=== PATIENT | male | born 1960 | race African-American/Black ===

== ENCOUNTER 2019-10-18 13:00 | Inpatient (IN) | payer OTHER ==
--- NOTE | 2019-10-18 14:16 | BHS.RME ---
Substance Use & Tx History - Substance Use History Alcohol Substance amount: 2 pints Vodka, 2 quarts beer Frequency of use: Daily Substance route: Oral Date of Last Use: 10/17/19 Marijuana/Hashish Substance amount: $20 Frequency of use: Less than 3 times per week Substance route: Smoking Date of Last Use: 09/18/19 Physical/Psych/Mental Status - Behavior General Behavior: Increased activity (restlessness, agitation) Eye Contact: Normal - Cooperativeness Cooperativeness: Cooperative - Thinking Thought Processes: Tight Thought content: Future oriented - Physical Health Problems Is patient presently having any pain?: Yes (chronic knee pain) Does patient presently have any injuries (include location): No Does patient currently have a fever: No CIWA Nausea/Vomitin-No Nausea/No Vomiting Muscle Tremors: 3 Anxiety: 3 Agitation: 1-Slight > Activity Paroxysmal Sweats: No Perspiration Orientation: 1-Uncertain about Date Tacttile Disturbances: 0-None Auditory Disturbances: 0-None Visual Disturbances: 0-None Headache: 0-None Present CIWA-Ar Total Score: 8
--- NOTE | 2019-10-18 16:47 | HP ---
CIWA Score Nausea/Vomitin Muscle Tremors: 3 Anxiety: 3 Agitation: 2 Paroxysmal Sweats: 2 Orientation: 2-Disoriented Date<2 days Tacttile Disturbances: 0-None Auditory Disturbances: 0-None Visual Disturbances: 0-None Headache: 2-Mild CIWA-Ar Total Score: 16 - Admission Criteria OASAS Guidelines: Admission for Medically Managed Detox: Requires at least one of the followin. CIWA greater than 12 2. Seizures within the past 24 hours 3. Delirium tremens within the past 24 hours 4. Hallucinations within the past 24 hours 5. Acute intervention needed for co occurring medical disorder 6. Acute intervention needed for co occurring psychiatric disorder 7. Severe withdrawal that cannot be handled at a lower level of care (continued vomiting, continued diarrhea, abnormal vital signs) requiring intravenous medication and/or fluids 8. Admitting History and Physical - Smoking History Smoking history: Current every day smoker Have you smoked in the past 12 months: Yes Aproximately how many cigarettes per day: 20 - Alcohol/Substance Use Hx Alcohol Use: Yes (BEER 3 QTS/D) Admission [facility] Chief Complaint: Seeking admission to detox from alcohol Allergies/Adverse Reactions: Allergies Allergy/AdvReac Type Severity Reaction Status Date / Time No Known Allergies Allergy Verified 10/18/19 17:19 History of Present Illness: 58 years old male with a long history of alcohol dependence is seeking admission to detox. His last detox was at [facility] and his last admission to [facility] was for the period 08/07/2012-08/11/2012 and he reports insignificant period of sobriety. He drinks 2 pints of Vodka and 2 quarts of budweiser daily. He reports medical history of bilateral knees arthritis, psych. history of bipolar disorder, anxiety and depression. He denies suicidal ideation at this time. He is unemployed on [employer], lives in a studio apartment and denies any legal issues. 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 Exam Limitations: No Limitations - Ebola screening Have you traveled outside of the country in the last 21 days: No Have you had contact with anyone from an Ebola affected area: No Have you been sick,other than usual withdrawal symptoms: No Do you have a fever: No - Review of Systems Constitutional: Chills, Malaise, Changes in sleep EENT: reports: No Symptoms Reported Respiratory: reports: No Symptoms reported Cardiac: reports: No Symptoms Reported GI: reports: Nausea, Poor Fluid Intake, Abdominal cramping : reports: No Symptoms Reported Musculoskeletal: reports: Other (bilateral knees pain) Integumentary: reports: Dryness, Flushing Neuro: reports: Tremors Endocrine: reports: No Symptoms Reported Hematology: reports: No Symptoms Reported Psychiatric: reports: Anxious Other Systems: Reviewed and Negative Patient History - Patient Medical History Hx Anemia: No Hx Asthma: No Hx Chronic Obstructive Pulmonary Disease (COPD): No Hx Cancer: No Hx Cardiac Disorders: No Hx Congestive Heart Failure: No Hx Hypertension: No Hx Hypercholesterolemia: No Hx Pacemaker: No HX Cerebrovascular Accident: No Hx Seizures: No Hx Dementia: No Hx Diabetes: No Hx Gastrointestinal Disorders: No Hx Liver Disease: No Hx Genitourinary Disorders: No Hx Sexually Transmitted Disorders: No Hx Renal Disease (ESRD): No Hx Thyroid Disease: No Hx Human Immunodeficiency Virus (HIV): No (NEGATIVE 2018) Hx Hepatitis C: No Hx Depression: Yes Hx Suicide Attempt: No Hx Bipolar Disorder: Yes (ZYPREXA, TRAZADONE) Hx Schizophrenia: No Other Medical History: Bilateral knees arthritis - Patient Surgical History Past Surgical History: Yes Hx Neurologic Surgery: No Hx Cataract Extraction: No Hx Cardiac Surgery: No Hx Lung Surgery: No Hx Abdominal Surgery: No Hx Appendectomy: No Hx Cholecystectomy: No Hx Genitourinary Surgery: No Hx Orthopedic Surgery: Yes (L elbow sx for fx in 2002) Hx Hysterectomy: No Anesthesia Reaction: No - PPD History Previous Implant?: Yes (PPD POSITIVE 2018) Implanted On Prior [facility] Admission?: Yes Date: 08/09/12 Results: 0 mm PPD to be Administered?: No - Reproductive History Patient is a Female of Child Bearing Age (11 -55 yrs old): No (MALE) - Smoking Cessation Smoking history: Current every day smoker Have you smoked in the past 12 months: Yes Aproximately how many cigarettes per day: 20 Hx Chewing Tobacco Use: No Initiated information on smoking cessation: Yes 'Breaking Loose' booklet given: 10/18/19 - Substance & Tx. History Hx Alcohol Use: Yes Hx Substance Use: Yes Substance Use Type: Alcohol, Marijuana Hx Substance Use Treatment: Yes ([facility]) - Substances abused Alcohol Substance route: Oral Frequency: Daily Amount used: 2 pints of Vodka, 2 quarts of budweiser daily Age of first use: 14 Date of last use: 10/18/19 Marijuana/Hashish Substance route: Smoking Frequency: Daily Amount used: 1 bag Age of first use: 14 Date of last use: 10/07/19 Admission Physical Exam [facility] - Physical General Appearance: Yes: Moderate Distress, Tremorous, Anxious HEENTM: Yes: Within Normal Limits Respiratory: Yes: Lungs Clear, Normal Breath Sounds, No Respiratory Distress Neck: Yes: Within Normal Limits Breast: Yes: Breast Exam Deferred Cardiology: Yes: Regular Rhythm, Regular Rate Abdominal: Yes: Normal Bowel Sounds, Soft Genitourinary: Yes: Within Normal Limits Back: Yes: Normal Inspection Musculoskeletal: Yes: Other (Bilateral knee pain) Extremities: Yes: Tremors Neurological: Yes: Within Normal Limits Integumentary: Yes: Warm Lymphatic: Yes: Within Normal Limits Cleared for Admission [facility] - Detox or Rehab [facility] Level of Care: Medically Managed Detox Regimen/Protocol: Librium Claeared for Rehab Admission: No Breathalyzer - Breathalyzer Breathalyzer: 0 Urine Drug Screen - Test Device Lot number: [id number] Expiration date: 07/03/21 - Control Is test valid?: Yes - Results Urine drug screen results: THC-Marijuana, BZO-Benzodiazepines Inpatient Rehab Admission - Rehab Decision to Admit Inpatient rehab admission?: No
[2019-10-18 16:59] VITALS: BMI 23.6
[2019-10-18] MEDS ORDERED: MAGNESIUM HYDROX 2400MG/30ML ORAL SUSPENSION 30 ML CUP PO PRN (17:08)
[2019-10-18] MEDS ORDERED: NICOTINE POLACRILEX 2 MG GUM BUC PRN (17:08)
[2019-10-18] MEDS ORDERED: IBUPROFEN 400 MG TABLET (FP) PO PRN (17:08)
[2019-10-18] MEDS ORDERED: chlordiazePOXIDE HCL 25 MG CAPSULE PO PRN (17:08)
[2019-10-18] MEDS ORDERED: MENTHOL/PHENOL 1 EACH UD MM PRN (17:08)
[2019-10-18] MEDS ORDERED: METHOCARBAMOL 500 MG TABLET PO PRN (17:08)
[2019-10-18] MEDS ORDERED: MAGNESIUM CITRATE 300 ML BOTTLE PO PRN (17:08)
[2019-10-18] MEDS ORDERED: BISMUTH SUBSALICYLATE 524 MG/30 ML UD PO PRN (17:08)
[2019-10-18] MEDS ORDERED: ACETAMINOPHEN 325 MG TABLET (FP) PO PRN ×2 (17:08)
[2019-10-18] MEDS ORDERED: MAG HYDROX/AL HYDROX/SIMETH 30 ML UNIT-DOSE CUP PO PRN (17:08)
[2019-10-18] MEDS ORDERED: ONDANSETRON *ODT* 4 MG TABLET SL ONE (17:45)
[2019-10-18] MEDS: chlordiazePOXIDE HCL 25 MG CAPSULE PO SCH (23:17)
[2019-10-18] MEDS: MELATONIN 5 MG TABLETS PO SCH (23:17)
[2019-10-18] MEDS: THIAMINE HCL 100 MG TABLET (FP) PO SCH (23:17)
[2019-10-19] MEDS: chlordiazePOXIDE HCL 25 MG CAPSULE PO SCH ×4 (06:56→22:45)
[2019-10-19] MEDS: NICOTINE 21 MG/24 HOURS TOPICAL PATCH TD SCH (10:08)
[2019-10-19] MEDS: PRENATAL VITAMINS W/ FOLIC ACID TABLET (FP) PO SCH (10:08)
--- NOTE | 2019-10-19 11:26 | PN ---
S CIWA - CIWA Score Nausea/Vomitin-No Nausea/No Vomiting Muscle Tremors: 2 Anxiety: 3 Agitation: 1-Slight > Activity Paroxysmal Sweats: 3 Orientation: 0-Oriented Tacttile Disturbances: 0-None Auditory Disturbances: 0-None Visual Disturbances: 0-None Headache: 1-Very Mild CIWA-Ar Total Score: 10 BHS Progress Note (SOAP) Subjective: c/o sweats, anxiety, and headache. Objective: 10/19/19 11:25 Vital Signs 10/19/19 10/19/19 05:50 08:43 Temperature 97.3 F L 98.5 F Pulse Rate 70 92 H Respiratory 18 18 Rate Blood Pressure 125/68 126/76 O2 Sat by Pulse 96 Oximetry (%) Labs pending. Assessment: 10/19/19 11:26 AOX3 and in no acute respiratory distress. Full ROM, ambulating in the unit. Withdrawal symptoms. Plan: continue detox.
[2019-10-19 12:02] LABS: HEMATOCRIT 39.4 % (35.4-49); HEMOGLOBIN 13.1 GM/dL (11.7-16.9); MCHC 33.4 g/dl (32.0-35.9); MEAN CELL VOLUME 98.9 fl (80-96); MEAN PLT VOLUME 9.2 fl (7.5-11.1); PLATELET COUNT 239 K/MM3 (134-434); RBC 3.98 M/mm3 (4.00-5.60); RDW 15.1 % (11.9-15.9); WHITE BLOOD COUNT 3.7 K/mm3 (4.0-10.0)
[2019-10-19 12:11] LABS: BLOOD UREA NITROGEN 13.9 mg/dL (7-18); CALCIUM 8.4 mg/dL (8.5-10.1); CREATININE 0.8 mg/dL (0.55-1.3); POTASSIUM 4.4 mmol/L (3.5-5.1)
[2019-10-19 12:13] LABS: BILIRUBIN,TOTAL 0.5 mg/dL (0.2-1)
--- NOTE | 2019-10-19 13:35 | CONSULT ---
[facility] Psychiatric Consult - Data Date of interview: 10/19/19 Admission source: [facility] Identifying data: Readmission to [address] [place] [address] for this 58 y/o AA male self-referred for detoxification treatment. ROBSON issues : alcohol, cannabis, nicotine. Patient is single, no dependents, domiciled ([facility] for past six years), unemployed and supported on SSI/SS[employer] benefits. Substance Abuse History: Discussed with the patient. ROBSON profile as follows : Smoking history: Current every day smoker. Have you smoked in the past 12 months: Yes. Aproximately how many cigarettes per day: 20. Hx Chewing Tobacco Use: No. Initiated information on smoking cessation: Yes. 'Breaking Loose' booklet given: 10/18/19. - Substance & Tx. History. Hx Alcohol Use: Yes. Hx Substance Use: Yes. Substance Use Type: Alcohol, Marijuana. Hx Substance Use Treatment: Yes ([facility], [place]). - Substances abused. Alcohol. Substance route: Oral. Frequency: Daily. Amount used: 2 pints of Vodka, 2 quarts of budweiser daily. Age of first use: 14. Date of last use: 10/18/19. Marijuana/Hashish. Substance route: Smoking. Frequency: Daily. Amount used: 1 bag. Age of first use: 14. Date of last use: 10/07/19 Medical History: Medical history is remarkable for arthritis of both knees + orthosurgery for fracture of left elbow (2002). Psychiatric History: Patient endorses history of multiple psychiatric h [facility]spitalizations (mostly at [facility]). [facility] and [facility] in addition to [facility]. Mr Miller has reportedly been diagnosed with Bipolar Disorder and treated with olanzapine 10 mg/day + trazodone 100 mg/hs (self-report). Patient sees a psychiatrist for [facility] the [facility] (). Denies history of suicide attempts. Physical/Sexual Abuse/Trauma History: Patient denies history of abuse. Mr Mujica has served four years in the [employer] ([id number]). No combat experie nce. Has never been deployed overseas. Honorably discharged (self-report). Additional Comment: Urine drug screen results: THC-Marijuana, BZO- Benzodiazepines. Noted. Mental Status Exam - Mental Status Exam Alert and Oriented to: Time, Place, Person Cognitive Function: Good Patient Appearance: Well Groomed (covered with jewelry, tall staure) Mood: Withdrawn, Hopeful Affect: Appropriate, Normal Range Patient Behavior: Fatigued, Appropriate, Cooperative Speech Pattern: Clear, Appropriate Voice Loudness: Normal Thought Process: Intact, Goal Oriented Thought Disorder: Not Present Hallucinations: Denies Suicidal Ideation: Denies Homicidal Ideation: Denies Insight/Judgement: Poor Sleep: Poorly, Difficulty falling asleep Appetite: Good Gait/Station: Normal Psychiatric Findings - Problem List ([place] 1, 2,3) (1) Alcohol dependence Current Visit: Yes Status: Chronic (2) Cannabis dependence Current Visit: Yes Status: Chronic (3) Nicotine dependence Current Visit: Yes Status: Acute (4) History of bipolar disorder Current Visit: Yes Status: Chronic (5) Insomnia Current Visit: Yes Status: Chronic - Initial Treatment Plan Initial Treatment Plan: Psychoeducation. Sleep hygiene. Detoxification in progress. Resumed, at patient's request for continuity of care : olanzapine 5 mg po daily + trazodone 100 mg po hs. Side effects/benefits of both drugs are discussed with the patient. Mr Mujica is in agreement with this plan of care. [place] consent (verbal) to JASPREET. Observation.
[2019-10-19] MEDS: traZODone HCL 100 MG TABLET (FP) PO SCH (22:45)
[2019-10-19] MEDS: THIAMINE HCL 100 MG TABLET (FP) PO SCH (22:45)
[2019-10-19] MEDS: MELATONIN 5 MG TABLETS PO SCH (22:46)
[2019-10-20] MEDS: chlordiazePOXIDE HCL 25 MG CAPSULE PO SCH ×4 (06:01→22:31)
[2019-10-20] MEDS: PRENATAL VITAMINS W/ FOLIC ACID TABLET (FP) PO SCH (10:37)
[2019-10-20] MEDS: OLANZapine 5 MG TABLET PO SCH (10:37)
[2019-10-20] MEDS: NICOTINE 21 MG/24 HOURS TOPICAL PATCH TD SCH (10:37)
--- NOTE | 2019-10-20 15:05 | PN ---
S CIWA - CIWA Score Nausea/Vomitin-Mild Nausea/No Vomiting Muscle Tremors: 1-None Visible, but [place] Anxiety: 3 Agitation: 1-Slight > Activity Paroxysmal Sweats: No Perspiration Orientation: 0-Oriented Tacttile Disturbances: 1-Very Mild Itch/Numbness Auditory Disturbances: 0-None Visual Disturbances: 1-Very Mild Sensitivity Headache: 1-Very Mild CIWA-Ar Total Score: 9 BHS Progress Note (SOAP) Subjective: 58 YEARS OLD MALE ADMITTED ON 10/18/19 FOR ALCOHOL WITHDRAWAL SX MANAGEMENT TREATING WITH LIBRIUM DETOX REGIMENT TROUBLE SLEEP LAST NIGHT FEELING TIRED PREFERS TO RESTING TODAY Objective: 10/20/19 15:04 Vital Signs - 24 hr 10/19/19 10/19/19 10/20/19 16:45 20:57 07:18 Temperature 97.3 F L 97.3 F L 97.3 F L Pulse Rate 82 88 81 Respiratory 18 19 19 Rate Blood Pressure 106/67 118/85 119/85 O2 Sat by Pulse 100 100 Oximetry (%) 10/20/19 10/20/19 08:52 12:43 Temperature 97.6 F 98.6 F Pulse Rate 92 H 91 H Respiratory 18 18 Rate Blood Pressure 115/78 133/87 O2 Sat by Pulse 98 Oximetry (%) Laboratory Tests 10/18/19 10/19/19 10/19/19 18:15 07:50 07:50 WBC 3.7 L RBC 3.98 L Hgb 13.1 Hct 39.4 D MCV 98.9 H MCH 33.0 MCHC 33.4 RDW 15.1 Plt Count 239 D MPV 9.2 Sodium Potassium Chloride Carbon Dioxide Anion Gap BUN Creatinine Est GFR (CKD-EPI)AfAm Est GFR (CKD-EPI)NonAf Random Glucose Calcium Total Bilirubin AST ALT Alkaline Phosphatase Total Protein Albumin Syphilis Serology Non-reactive COVID-19 (JOANNA) Not detected 10/19/19 07:50 WBC RBC Hgb Hct MCV MCH MCHC RDW Plt Count MPV Sodium 143 Potassium 4.4 Chloride 110 H Carbon Dioxide 26 Anion Gap 7 L BUN 13.9 Creatinine 0.8 Est GFR (CKD-EPI)AfAm 113.33 Est GFR (CKD-EPI)NonAf 97.78 Random Glucose 90 Calcium 8.4 L Total Bilirubin 0.5 AST 19 ALT 20 Alkaline Phosphatase 86 Total Protein 6.0 L Albumin 3.0 L Syphilis Serology COVID-19 (JOANNA) LAB NOTED Assessment: 10/20/19 15:05 ALCOHOL WITHDRAWAL Plan: LIBRIUM REGIMENT
--- NOTE | 2019-10-20 18:59 | EKG ---
Test Reason : Blood Pressure : / mmHG Vent. Rate : 069 BPM Atrial Rate : 069 BPM P-R Int : 178 ms QRS Dur : 094 ms QT Int : 424 ms P-R-T Axes : 069 -07 063 degrees QTc Int : 454 ms NORMAL SINUS RHYTHM LEFT ATRIAL ENLARGEMENT BORDERLINE ECG NO PREVIOUS ECGS AVAILABLE Confirmed by MD KEENA, ADARSH ([id number]) on 10/20/2019 6:58:40 PM Referred By: Confirmed By:ADARSH BRINK MD
[2019-10-20] MEDS: MELATONIN 5 MG TABLETS PO SCH (22:31)
[2019-10-20] MEDS: THIAMINE HCL 100 MG TABLET (FP) PO SCH (22:31)
[2019-10-20] MEDS: traZODone HCL 100 MG TABLET (FP) PO SCH (22:31)
[2019-10-21] MEDS ORDERED: chlordiazePOXIDE HCL 10 MG CAPSULE PO PRN
[2019-10-21] MEDS: chlordiazePOXIDE HCL 10 MG CAPSULE PO SCH ×4 (06:43→22:22)
[2019-10-21] MEDS: NICOTINE 21 MG/24 HOURS TOPICAL PATCH TD SCH (10:45)
[2019-10-21] MEDS: PRENATAL VITAMINS W/ FOLIC ACID TABLET (FP) PO SCH (10:46)
[2019-10-21] MEDS: OLANZapine 5 MG TABLET PO SCH (10:46)
--- NOTE | 2019-10-21 11:22 | PN ---
S CIWA - CIWA Score Nausea/Vomitin-No Nausea/No Vomiting Muscle Tremors: 2 Anxiety: 3 Agitation: 0-Normal Activity Paroxysmal Sweats: No Perspiration Orientation: 0-Oriented Tacttile Disturbances: 0-None Auditory Disturbances: 0-None Visual Disturbances: 2-Mild Sensitivity Headache: 0-None Present CIWA-Ar Total Score: 7 S Progress Note (SOAP) Subjective: 58 years old male was admitted on 10/18/19 for alcohol withdrawal sx management treating with librium detox regiment reports that librium helps the tremor and anxiety able to sleep through the night seen by psychiatrist martina zyprexa and trazodone Objective: 10/21/19 11:22 Vital Signs - 24 hr 10/20/19 10/20/19 10/20/19 12:43 17:11 20:54 Temperature 98.6 F 97.1 F L 97.5 F L Pulse Rate 91 H 105 H 92 H Respiratory 18 19 18 Rate Blood Pressure 133/87 113/79 129/84 O2 Sat by Pulse 98 99 Oximetry (%) 10/21/19 10/21/19 06:49 08:31 Temperature 97.3 F L 98.1 F Pulse Rate 78 83 Respiratory 18 18 Rate Blood Pressure 106/70 106/75 O2 Sat by Pulse 97 Oximetry (%) Laboratory Tests 10/18/19 10/19/19 10/19/19 18:15 07:50 07:50 WBC 3.7 L RBC 3.98 L Hgb 13.1 Hct 39.4 D MCV 98.9 H MCH 33.0 MCHC 33.4 RDW 15.1 Plt Count 239 D MPV 9.2 Sodium Potassium Chloride Carbon Dioxide Anion Gap BUN Creatinine Est GFR (CKD-EPI)AfAm Est GFR (CKD-EPI)NonAf Random Glucose Calcium Total Bilirubin AST ALT Alkaline Phosphatase Total Protein Albumin Syphilis Serology Non-reactive COVID-19 (JOANNA) Not detected 10/19/19 07:50 WBC RBC Hgb Hct MCV MCH MCHC RDW Plt Count MPV Sodium 143 Potassium 4.4 Chloride 110 H Carbon Dioxide 26 Anion Gap 7 L BUN 13.9 Creatinine 0.8 Est GFR (CKD-EPI)AfAm 113.33 Est GFR (CKD-EPI)NonAf 97.78 Random Glucose 90 Calcium 8.4 L Total Bilirubin 0.5 AST 19 ALT 20 Alkaline Phosphatase 86 Total Protein 6.0 L Albumin 3.0 L Syphilis Serology COVID-19 (JOANNA) lab noted Assessment: 10/21/19 11:22 alcohol withdrawal Plan: librium regiment
[2019-10-21] MEDS: traZODone HCL 100 MG TABLET (FP) PO SCH (22:22)
[2019-10-21] MEDS: THIAMINE HCL 100 MG TABLET (FP) PO SCH (22:22)
[2019-10-21] MEDS: MELATONIN 5 MG TABLETS PO SCH (22:23)
[2019-10-22] MEDS: chlordiazePOXIDE HCL 10 MG CAPSULE PO SCH ×2 (06:02→17:45)
[2019-10-22] MEDS: PRENATAL VITAMINS W/ FOLIC ACID TABLET (FP) PO SCH (10:28)
[2019-10-22] MEDS: NICOTINE 21 MG/24 HOURS TOPICAL PATCH TD SCH (10:28)
[2019-10-22] MEDS: OLANZapine 5 MG TABLET PO SCH (10:28)
--- NOTE | 2019-10-22 15:03 | PN ---
S CIWA - CIWA Score Nausea/Vomitin-Mild Nausea/No Vomiting Muscle Tremors: 1-None Visible, but [place] Anxiety: 1-Mildly Anxious Agitation: 0-Normal Activity Paroxysmal Sweats: No Perspiration Orientation: 0-Oriented Tacttile Disturbances: 0-None Auditory Disturbances: 0-None Visual Disturbances: 1-Very Mild Sensitivity Headache: 0-None Present CIWA-Ar Total Score: 4 BHS Progress Note (SOAP) Subjective: 58 years old male was admitted on 10/18/19 for alcohol withdrawal sx management treating with librium detox regiment feels better today sitting on the edge of the bed ate breakfast and lunch tolerated food well discussing aftercare with staff mr doyle prefers [facility] for alcohol recovery Objective: 10/22/19 15:05 Vital Signs - 24 hr 10/21/19 10/21/19 10/22/19 17:07 20:25 06:19 Temperature 98.1 F 98.6 F 97.6 F Pulse Rate 98 H 87 66 Respiratory 16 18 18 Rate Blood Pressure 96/67 131/78 109/69 O2 Sat by Pulse 100 99 Oximetry (%) 10/22/19 10/22/19 10/22/19 08:27 08:54 09:47 Temperature 98.1 F 96.8 F L Pulse Rate 84 78 Respiratory 16 20 Rate Blood Pressure 133/93 117/81 O2 Sat by Pulse 99 99 Oximetry (%) 10/22/19 13:29 Temperature 96.8 F L Pulse Rate 97 H Respiratory 20 Rate Blood Pressure 108/76 O2 Sat by Pulse 100 Oximetry (%) Laboratory Tests 10/18/19 10/19/19 10/19/19 18:15 07:50 07:50 WBC 3.7 L RBC 3.98 L Hgb 13.1 Hct 39.4 D MCV 98.9 H MCH 33.0 MCHC 33.4 RDW 15.1 Plt Count 239 D MPV 9.2 Sodium Potassium Chloride Carbon Dioxide Anion Gap BUN Creatinine Est GFR (CKD-EPI)AfAm Est GFR (CKD-EPI)NonAf Random Glucose Calcium Total Bilirubin AST ALT Alkaline Phosphatase Total Protein Albumin Syphilis Serology Non-reactive COVID-19 (JOANNA) Not detected 10/19/19 07:50 WBC RBC Hgb Hct MCV MCH MCHC RDW Plt Count MPV Sodium 143 Potassium 4.4 Chloride 110 H Carbon Dioxide 26 Anion Gap 7 L BUN 13.9 Creatinine 0.8 Est GFR (CKD-EPI)AfAm 113.33 Est GFR (CKD-EPI)NonAf 97.78 Random Glucose 90 Calcium 8.4 L Total Bilirubin 0.5 AST 19 ALT 20 Alkaline Phosphatase 86 Total Protein 6.0 L Albumin 3.0 L Syphilis Serology COVID-19 (JOANNA) lab noted Assessment: 10/22/19 15:05 alcohol withdrawal Plan: librium regiment
[2019-10-22] MEDS: hydrOXYzine PAMOATE 25 MG CAPSULE (FP) PO PRN ×2 (17:45→22:50)
[2019-10-22] MEDS: MELATONIN 5 MG TABLETS PO SCH (22:50)
[2019-10-22] MEDS: THIAMINE HCL 100 MG TABLET (FP) PO SCH (22:50)
[2019-10-22] MEDS: traZODone HCL 100 MG TABLET (FP) PO SCH (22:50)
[2019-10-22 23:16] VITALS: TEMP 97.3
[2019-10-23] MEDS ORDERED: chlordiazePOXIDE HCL 10 MG CAPSULE PO ONE (05:00)
[2019-10-23 06:50] VITALS: BP 104/63; PULSE 71
[2019-10-23] MEDS: OLANZapine 5 MG TABLET PO SCH (09:20)
[2019-10-23] MEDS: PRENATAL VITAMINS W/ FOLIC ACID TABLET (FP) PO SCH (09:20)
[2019-10-23] MEDS: NICOTINE 21 MG/24 HOURS TOPICAL PATCH TD SCH (09:21)
--- NOTE | 2019-10-23 09:40 | DS ---
[facility] Detox Discharge Summary Admission Date: 10/18/19 Discharge Date: 10/23/19 - History Present History: Alcohol Dependence Additional Comments: 58 years old male was admitted on 10/18/19 for alcohol withdrawal sx management treated with librium detox regiment seen by psychiatrist martina renner mr doyle has completed the librium regiment and is tolerated well General Appearance: Yes: Moderate Distress, Tremorous, Anxious HEENTM: Yes: Within Normal Limits Respiratory: Yes: Lungs Clear, Normal Breath Sounds, No Respiratory Distress Neck: Yes: Within Normal Limits Breast: Yes: Breast Exam Deferred Cardiology: Yes: Regular Rhythm, Regular Rate Abdominal: Yes: Normal Bowel Sounds, Soft Genitourinary: Yes: Within Normal Limits Back: Yes: Normal Inspection Musculoskeletal: Yes: Other (Bilateral knee pain) Extremities: Yes: Tremors Neurological: Yes: Within Normal Limits Integumentary: Yes: Warm Lymphatic: Yes: Within Normal Limits Pertinent Past History: time for discharge 45 minutes transferred order set from detox to rehab - Physical Exam Results Vital Signs: Vital Signs Temperature 97.3 F L 10/23/19 05:45 Pulse Rate 71 10/23/19 05:45 Respiratory Rate 18 10/23/19 05:45 Blood Pressure 104/63 10/23/19 05:45 O2 Sat by Pulse Oximetry (%) 95 10/22/19 21:00 Pertinent Admission Physical Exam Findings: alcohol withdrawal Vital Signs - 24 hr 10/22/19 10/22/19 10/23/19 16:56 21:00 05:45 Temperature 96.9 F L 97.3 F L 97.3 F L Pulse Rate 83 103 H 71 Respiratory 18 18 18 Rate Blood Pressure 131/83 137/80 104/63 O2 Sat by Pulse 100 95 Oximetry (%) Laboratory Tests 10/18/19 10/19/19 10/19/19 18:15 07:50 07:50 WBC 3.7 L RBC 3.98 L Hgb 13.1 Hct 39.4 D MCV 98.9 H MCH 33.0 MCHC 33.4 RDW 15.1 Plt Count 239 D MPV 9.2 Sodium Potassium Chloride Carbon Dioxide Anion Gap BUN Creatinine Est GFR (CKD-EPI)AfAm Est GFR (CKD-EPI)NonAf Random Glucose Calcium Total Bilirubin AST ALT Alkaline Phosphatase Total Protein Albumin Syphilis Serology Non-reactive COVID-19 (JOANNA) Not detected 10/19/19 07:50 WBC RBC Hgb Hct MCV MCH MCHC RDW Plt Count MPV Sodium 143 Potassium 4.4 Chloride 110 H Carbon Dioxide 26 Anion Gap 7 L BUN 13.9 Creatinine 0.8 Est GFR (CKD-EPI)AfAm 113.33 Est GFR (CKD-EPI)NonAf 97.78 Random Glucose 90 Calcium 8.4 L Total Bilirubin 0.5 AST 19 ALT 20 Alkaline Phosphatase 86 Total Protein 6.0 L Albumin 3.0 L Syphilis Serology COVID-19 (JOANNA) lab noted - Treatment Hospital Course: Detox Protocol Followed, Detoxed Safely, Responded well, Discharged Condition Good, Rehab Referral Accepted Patient has Accepted a Rehab Referral to: [facility] - Medication Discharge Medications: Ambulatory Orders Olanzapine [ZyPREXA -] 10 mg PO BID #0 tablet 05/30/11 traZODone HCL [Desyrel -] 100 mg PO HS 08/07/12 - Diagnosis (1) Schizoaffective disorder Status: Suspected Qualifiers: Schizoaffective disorder type: unspecified Qualified Code(s): F25.9 - Schizoaffective disorder, unspecified (2) Nicotine dependence Status: Acute Qualifiers: Nicotine product type: cigarettes Substance use status: in withdrawal Qualified Code(s): F17.213 - Nicotine dependence, cigarettes, with withdrawal (3) Alcohol dependence Status: Acute - AMA Did Patient Leave Against Medical Advice: No CIWA Score - CIWA Score Nausea/Vomitin-Mild Nausea/No Vomiting Muscle Tremors: 1-None Visible, but [place] Anxiety: 0-No Anxiety, at Ease Agitation: 0-Normal Activity Paroxysmal Sweats: No Perspiration Orientation: 0-Oriented Tacttile Disturbances: 0-None Auditory Disturbances: 0-None Visual Disturbances: 0-None Headache: 0-None Present CIWA-Ar Total Score: 2
== END 2019-10-23 12:49 | disposition other institution (70) | DRG 897 ==
LOC: YASAS 13:00 → Y3N 17:28
PROVIDERS: ADMIT Allergy & Immunology; ATTEND Allergy & Immunology
PROC: HZ2ZZZZ Detoxification Services for Substance Abuse Treatment (ICD-10-PCS; principal; 2019-10-18)
DX: F10.230 Alcohol dependence with withdrawal, uncomplicated (principal); F12.20 Cannabis dependence, uncomplicated; F17.210 Nicotine dependence, cigarettes, uncomplicated; F25.9 Schizoaffective disorder, unspecified; F31.9 Bipolar disorder, unspecified; G47.00 Insomnia, unspecified; M17.0 Bilateral primary osteoarthritis of knee; M25.561 Pain in right knee; M25.562 Pain in left knee
CPT/HCPCS: 36415; 71045-TC-FY; 80053; 85027; 86780; 93005; 93010; U0003

== ENCOUNTER 2019-10-23 13:11 | Inpatient (IN) | payer OTHER ==
--- NOTE | 2019-10-23 09:43 | HP ---
[facility] Rehab Assess/Revision - Admission History Admitted to Rehab from: [facility] Date of Admission to Rehab: 10/23/19 - Findings Detox History & Physical reviewed: Yes Concur with findings: Yes Comments/Additional Findings: transferred from detox to rehab admission as per protocol Inpatient Rehab Admission - Rehab Decision to Admit Inpatient rehab admission?: Yes - Initial Determination Are CD services needed?: Yes Free of communicable disease: Yes Not in need of hospitalization: Yes - Rehab Admission Criteria Previous failed treatment: Yes Poor recovery environment: Yes Comorbidities: Yes Lacks judgement: Yes Patient is meeting Inpatient Rehab admission criteria:: Yes
[2019-10-23] MEDS ORDERED: guaiFENesin 200 MG/10 ML 10 ML UNIT-DOSE CUPS PO PRN (13:43)
[2019-10-23] MEDS ORDERED: LOPERAMIDE HCL 2 MG CAPSULE PO PRN (13:43)
[2019-10-23] MEDS ORDERED: MAGNESIUM CITRATE 300 ML BOTTLE PO PRN (13:43)
[2019-10-23] MEDS ORDERED: MAG HYDROX/AL HYDROX/SIMETH 30 ML UNIT-DOSE CUP PO PRN (13:43)
[2019-10-23] MEDS ORDERED: NICOTINE POLACRILEX 4 MG GUM BC PRN (13:43)
[2019-10-23] MEDS ORDERED: ACETAMINOPHEN 325 MG TABLET (FP) PO PRN (13:43)
[2019-10-23] MEDS ORDERED: MAGNESIUM HYDROX 2400MG/30ML ORAL SUSPENSION 30 ML CUP PO PRN (13:43)
[2019-10-23] MEDS ORDERED: P-EPHED 60MG/TRIPROLIDI 2.5MG TABLET PO PRN (13:43)
--- NOTE | 2019-10-23 14:52 | CONSULT ---
[facility] Psychiatric Consult - Data Date of interview: 10/23/19 Admission source: 3N Identifying data: Mr Mujica is a 58 years old single Black makle, unemployed receiving SSi/SSD, domiciled admitted from detox on 10/23/19 for inpatient rehabilitation treatment for alcohol and cannabis Substance Abuse History: Reports history of alcohol and marijuana use. Refer to addiction counselor's summary for further information Medical History: Significant for arthritis of both knees and orthosurgery for fracture of left elbow in 2002. Smokes cigarettes 1 ppd Psychiatric History: Patient is known for previous admissions to this facility. He was just referred from detox where he saw Dr Adams. Hr reports being diagnosed with Bipolar Disorder with multiple previous hospitalizations at various institutions but mostly in the [place]([facility], [facility]). He is also known to [facility] and [facility]. Reports that he currently receives OPD care at [facility] on and he is prescribed Zyprexa 10 mg/day and Trazadone 100 mg/hs. When he saw Dr Adams recently in detox, he was prescribed Zyprexa 5 mg/day and Trazadone 100 mg/hs. Denies previous suicidal attempt. At present, denies experiencing psychotic, manic or depressive symptoms, S/H ideations. However, reports sleeping poorly Physical/Sexual Abuse/Trauma History: Patient denies history of abuse. Mr Mujica has served four years in the [employer] ([id number]). No combat experience. Has never been deployed overseas. Honorably discharged (self- report). Psychiatric Findings - Problem List ([place] 1, 2,3) (1) Bipolar disorder Current Visit: Yes Status: Chronic (2) Insomnia Current Visit: No Status: Ruled-out (3) Substance-induced sleep disorder Current Visit: Yes Status: Acute (4) Alcohol dependence Current Visit: Yes Status: Acute (5) Cannabis dependence Current Visit: Yes Status: Acute (6) Nicotine dependence Current Visit: Yes Status: Chronic (7) Arthritis of both knees Current Visit: Yes Status: Chronic - Initial Treatment Plan Initial Treatment Plan: 1) Continue Trazadone 100 mg po HS. 2) Resume Zyprexa 10 mg po daily. 3) Continueinpatient rehabiloitation
--- NOTE | 2019-10-23 15:03 | PN ---
[facility] Progress Note Note: Pt is a 58 y/o male admitted to rehab from [facility] [address] [place] today. PMHx:Arthritis- Bilateral knees. Psx: Left elbow sx due to sx-2002. Psych Hx of Bipolar disorder-on meds. Vital Signs - 24 hr 10/23/19 13:42 Temperature 97.7 F Pulse Rate 97 H Respiratory 18 Rate O2 Sat by Pulse 97 Oximetry (%) alert o x 3 nad oob ambulating with unsteady gait. extremities:no edema,skin intact New rehab pt admitted to rehab increase po fluids maintain safety cane ordered for ambulation
[2019-10-23] MEDS: IBUPROFEN 400 MG TABLET (FP) PO PRN (19:28)
[2019-10-23] MEDS: THIAMINE HCL 100 MG TABLET (FP) PO SCH (21:16)
[2019-10-23] MEDS: MELATONIN 5 MG TABLETS PO SCH (21:16)
[2019-10-23] MEDS: traZODone HCL 100 MG TABLET (FP) PO SCH (21:17)
[2019-10-23] MEDS ORDERED: OLANZapine 5 MG TABLET PO SCH (22:00)
[2019-10-24] MEDS: OLANZapine 10 MG TABLET PO SCH (10:15)
[2019-10-24] MEDS: IBUPROFEN 400 MG TABLET (FP) PO PRN (10:15)
[2019-10-24] MEDS: PRENATAL VITAMINS W/ FOLIC ACID TABLET (FP) PO SCH (10:15)
[2019-10-24] MEDS: NICOTINE 21 MG/24 HOURS TOPICAL PATCH TD SCH (10:16)
[2019-10-24] MEDS: LIDOCAINE 5% TOPICAL PATCH TP SCH (10:16)
[2019-10-24] MEDS: MELATONIN 5 MG TABLETS PO SCH (21:10)
[2019-10-24] MEDS: traZODone HCL 100 MG TABLET (FP) PO SCH (21:10)
[2019-10-24] MEDS: THIAMINE HCL 100 MG TABLET (FP) PO SCH (21:10)
[2019-10-24] MEDS: LIDOCAINE PATCH REMOVAL MC SCH (21:10)
[2019-10-25] MEDS: LIDOCAINE 5% TOPICAL PATCH TP SCH (10:20)
[2019-10-25] MEDS: PRENATAL VITAMINS W/ FOLIC ACID TABLET (FP) PO SCH (10:21)
[2019-10-25] MEDS: OLANZapine 10 MG TABLET PO SCH (10:21)
[2019-10-25] MEDS: NICOTINE 21 MG/24 HOURS TOPICAL PATCH TD SCH (10:21)
[2019-10-25] MEDS: traZODone HCL 100 MG TABLET (FP) PO SCH (22:03)
[2019-10-25] MEDS: THIAMINE HCL 100 MG TABLET (FP) PO SCH (22:03)
[2019-10-25] MEDS: MELATONIN 5 MG TABLETS PO SCH (22:04)
[2019-10-25] MEDS: LIDOCAINE PATCH REMOVAL MC SCH (22:04)
[2019-10-26] MEDS: PRENATAL VITAMINS W/ FOLIC ACID TABLET (FP) PO SCH (09:37)
[2019-10-26] MEDS: LIDOCAINE 5% TOPICAL PATCH TP SCH (09:37)
[2019-10-26] MEDS: OLANZapine 10 MG TABLET PO SCH (09:38)
[2019-10-26] MEDS: NICOTINE 21 MG/24 HOURS TOPICAL PATCH TD SCH (09:38)
[2019-10-26] MEDS: traZODone HCL 100 MG TABLET (FP) PO SCH (21:09)
[2019-10-26] MEDS: THIAMINE HCL 100 MG TABLET (FP) PO SCH (21:09)
[2019-10-26] MEDS: MELATONIN 5 MG TABLETS PO SCH (21:10)
[2019-10-26] MEDS: LIDOCAINE PATCH REMOVAL MC SCH (21:10)
--- NOTE | 2019-10-27 03:42 | PN ---
[facility] Progress Note Note: SEEN FOR FALL. CLIENT REPORTS MISSING THE BED WHEN HE ATTEMPTED TO SIT. HE REPORTS FALLING BACKWARDS STRIKING THE BACK OF HIS HEAD ON THE FLOOR. DENIES DIZZINESS, HEADACHE, VISUAL DISTURBANCE, SOB, C.P, WEAKNESS. Vital Signs Temperature 97.7 F 10/27/19 03:35 Pulse Rate 90 10/27/19 03:35 Respiratory Rate 18 10/27/19 03:35 Blood Pressure 123/80 10/27/19 03:35 O2 Sat by Pulse Oximetry (%) 96 10/27/19 03:35 SEEN SEATED IN ERECT POSITION AT BEDSIDE A/O X3 , IRRITABLE HEAD- 5CM X LINEAR LACERATION TO OCCIPITAL PUPILS-PERRLA, EOMI EXTREMITIES- AMBULATING W/O DIFFICULTY BACK- NL INSPECTION A- ADMITTED FOR ALCOHOL DETOX ON 10/18/19. COMPLETED AND TRANSFERRED TO REHAB ON SAME DAY.PMHx:Arthritis-Bilateral knees. Psx: Left elbow sx due to sx-2002. Psych Hx of Bipolar disorder-on meds. S/P FALL WITH LACERATION TO HEAD. P- FALL PROTOCOL 1 TRANSFER TO [facility] FOR HEAD CT/ SUTURES/ CLEARANCE - REPORT GIVEN TO DR. GUZMAN
--- NOTE | 2019-10-27 09:06 | PN ---
Fer Progress Note Note: Patient returned from the ED where he received 4 kacy to the left posterior head following a fall. There is no active bleeding, he denies pain/headache. Monitoring ongoing
[2019-10-27] MEDS: NICOTINE 21 MG/24 HOURS TOPICAL PATCH TD SCH (09:28)
[2019-10-27] MEDS: PRENATAL VITAMINS W/ FOLIC ACID TABLET (FP) PO SCH (09:28)
[2019-10-27] MEDS: LIDOCAINE 5% TOPICAL PATCH TP SCH (09:28)
[2019-10-27] MEDS: OLANZapine 10 MG TABLET PO SCH (09:29)
[2019-10-27] MEDS: traZODone HCL 100 MG TABLET (FP) PO SCH (21:26)
[2019-10-27] MEDS: LIDOCAINE PATCH REMOVAL MC SCH (21:26)
[2019-10-27] MEDS: MELATONIN 5 MG TABLETS PO SCH (21:26)
[2019-10-27] MEDS: THIAMINE HCL 100 MG TABLET (FP) PO SCH (21:26)
[2019-10-28] MEDS: NICOTINE 21 MG/24 HOURS TOPICAL PATCH TD SCH (10:44)
[2019-10-28] MEDS: LIDOCAINE 5% TOPICAL PATCH TP SCH (10:44)
[2019-10-28] MEDS: OLANZapine 10 MG TABLET PO SCH (10:44)
[2019-10-28] MEDS: PRENATAL VITAMINS W/ FOLIC ACID TABLET (FP) PO SCH (10:44)
[2019-10-28] MEDS: BACITRACIN 0.9 GM PACKET TP SCH (10:49)
[2019-10-28] MEDS: LIDOCAINE PATCH REMOVAL MC SCH (21:16)
[2019-10-28] MEDS: traZODone HCL 100 MG TABLET (FP) PO SCH (21:16)
[2019-10-28] MEDS: THIAMINE HCL 100 MG TABLET (FP) PO SCH (21:16)
[2019-10-28] MEDS: MELATONIN 5 MG TABLETS PO SCH ×2 (21:17)
[2019-10-29] MEDS: OLANZapine 10 MG TABLET PO SCH (10:21)
[2019-10-29] MEDS: PRENATAL VITAMINS W/ FOLIC ACID TABLET (FP) PO SCH (10:21)
[2019-10-29] MEDS: NICOTINE 21 MG/24 HOURS TOPICAL PATCH TD SCH (10:22)
[2019-10-29] MEDS: BACITRACIN 0.9 GM PACKET TP SCH (10:22)
[2019-10-29] MEDS: LIDOCAINE 5% TOPICAL PATCH TP SCH (10:22)
--- NOTE | 2019-10-29 14:25 | PN ---
[facility] Progress Note Note: S Progress Note Note: 10/29/19 Pt is s/p fall with laceration to occipital head. Below is copy of discharge note from the [facility] ED: Discharge - Discharge Information Problems reviewed: Yes Clinical Impression/Diagnosis: Fall Qualifiers: Encounter type: initial encounter Qualified Code(s): W19.XXXA - Unspecified fall, initial encounter Laceration of head Qualifiers: Encounter type: initial encounter Location of open wound of head: scalp Foreign body presence: without foreign body Qualified Code(s): S01.01XA - Laceration without foreign body of scalp, initial encounter Condition: Stable Disposition: HOME - Admission No - Follow up/Referral Referrals: ON STAFF,NOT [Primary Care Provider] - - Patient Discharge Instructions Patient Printed Discharge Instructions: DI for Laceration Repair -- Kacy Additional Instructions: You came into the ER following a fall with laceration to your head. In the ED, you were evaluated with head and neck CT. Your results did not indicate any acute brain bleeding or skull, neck injuries. Your CT indicates that you have a small metallic object in your right eye and you should not receive MRIs. You do not appear to be an acute need for immediate hospitalization. You are advised to return to the ED on 11/04/2019 for staple removal. Keep the wound dry for 24 hours and avoid lotions and soaps. Use bacitracin antibiotic ointment over the kacy. Return to the ED immediately if you have redness around the wound, drainage of pus, opening of the wound site, fever, or nausea. Thank you for coming to the [facility] ER. We hope you feel better soon! 8 Today, patient was seen in dayroom watching TV with peers. Denies any current discomfort. Vital Signs (72 hours) 10/26/19 10/27/1910/26/20 19:27 03:20 03:35 Temperature 97.7 F 97.7 F Pulse Rate 96 H 90 Respiratory 18 18 Rate Blood Pressure 123/80 123/80 O2 Sat by Pulse 95 96 Oximetry (%) 10/27/19 10/27/19 10/27/19 09:10 10:55 11:15 Temperature 98.2 F Pulse Rate 92 H 92 H 83 Respiratory 18 18 18 Rate Blood Pressure 102/60 102/60 116/75 O2 Sat by Pulse 94 L Oximetry (%) 10/27/19 10/27/19 10/27/19 11:22 13:16 13:17 Temperature 98.2 F 97.7 F 97.7 F Pulse Rate 83 82 82 Respiratory 18 18 18 Rate Blood Pressure 116/75 108/56 L 108/56 L O2 Sat by Pulse 95 95 Oximetry (%) 10/27/19 10/27/19 10/27/19 14:23 15:19 15:21 Temperature 96.9 F L 96.9 F L Pulse Rate 82 82 Respiratory 18 18 Rate Blood Pressure 107/71 107/71 O2 Sat by Pulse 94 L 95 Oximetry (%) 10/27/19 10/27/19 10/28/19 19:10 23:05 06:40 Temperature 97.7 F 97.7 F 97.7 F Pulse Rate 97 H 99 H 87 Respiratory 18 18 18 Rate Blood Pressure 110/97 100/66 116/63 O2 Sat by Pulse 96 95 96 Oximetry (%) 10/28/19 10/28/19 10/29/19 12:46 20:10 06:20 Temperature 97.8 F Pulse Rate 67 Respiratory 18 Rate Blood Pressure 117/73 O2 Sat by Pulse 95 95 94 L Oximetry (%) Alert o x 3 nad oob ambulating with steady gait/uses cane. Head: Laceration with 4 Kacy, wound is dry, clean and approximated. No swelling to area. S/p Fall with head injury P:D/w pt staple will be removed on the [address] when due on day recommended above. Maintain safety
[2019-10-29] MEDS: traZODone HCL 100 MG TABLET (FP) PO SCH (21:05)
[2019-10-29] MEDS: THIAMINE HCL 100 MG TABLET (FP) PO SCH (21:05)
[2019-10-29] MEDS: MELATONIN 5 MG TABLETS PO SCH (21:05)
[2019-10-29] MEDS: LIDOCAINE PATCH REMOVAL MC SCH (21:06)
[2019-10-30] MEDS: PRENATAL VITAMINS W/ FOLIC ACID TABLET (FP) PO SCH (10:17)
[2019-10-30] MEDS: LIDOCAINE 5% TOPICAL PATCH TP SCH (10:17)
[2019-10-30] MEDS: BACITRACIN 0.9 GM PACKET TP SCH (10:17)
[2019-10-30] MEDS: OLANZapine 10 MG TABLET PO SCH (10:17)
[2019-10-30] MEDS: NICOTINE 21 MG/24 HOURS TOPICAL PATCH TD SCH (10:17)
[2019-10-30] MEDS: THIAMINE HCL 100 MG TABLET (FP) PO SCH (21:07)
[2019-10-30] MEDS: traZODone HCL 100 MG TABLET (FP) PO SCH (21:07)
[2019-10-30] MEDS: LIDOCAINE PATCH REMOVAL MC SCH (21:08)
[2019-10-30] MEDS: MELATONIN 5 MG TABLETS PO SCH (21:08)
[2019-10-31] MEDS: BACITRACIN 0.9 GM PACKET TP SCH (09:33)
[2019-10-31] MEDS: PRENATAL VITAMINS W/ FOLIC ACID TABLET (FP) PO SCH (09:33)
[2019-10-31] MEDS: OLANZapine 10 MG TABLET PO SCH (09:33)
[2019-10-31] MEDS: LIDOCAINE 5% TOPICAL PATCH TP SCH (09:34)
[2019-10-31] MEDS: NICOTINE 21 MG/24 HOURS TOPICAL PATCH TD SCH (09:34)
[2019-10-31] MEDS: MELATONIN 5 MG TABLETS PO SCH (21:58)
[2019-10-31] MEDS: THIAMINE HCL 100 MG TABLET (FP) PO SCH (21:59)
[2019-10-31] MEDS: LIDOCAINE PATCH REMOVAL MC SCH (21:59)
[2019-10-31] MEDS: traZODone HCL 100 MG TABLET (FP) PO SCH (21:59)
[2019-11-01] MEDS: OLANZapine 10 MG TABLET PO SCH (10:29)
[2019-11-01] MEDS: PRENATAL VITAMINS W/ FOLIC ACID TABLET (FP) PO SCH (10:29)
[2019-11-01] MEDS: NICOTINE 21 MG/24 HOURS TOPICAL PATCH TD SCH (10:29)
[2019-11-01] MEDS: BACITRACIN 0.9 GM PACKET TP SCH (10:31)
[2019-11-01] MEDS: LIDOCAINE 5% TOPICAL PATCH TP SCH (10:31)
[2019-11-01] MEDS: MELATONIN 5 MG TABLETS PO SCH (21:15)
[2019-11-01] MEDS: LIDOCAINE PATCH REMOVAL MC SCH (21:15)
[2019-11-01] MEDS: traZODone HCL 100 MG TABLET (FP) PO SCH (21:15)
[2019-11-01] MEDS: THIAMINE HCL 100 MG TABLET (FP) PO SCH (21:15)
[2019-11-02] MEDS: PRENATAL VITAMINS W/ FOLIC ACID TABLET (FP) PO SCH (09:12)
[2019-11-02] MEDS: OLANZapine 10 MG TABLET PO SCH (09:12)
[2019-11-02] MEDS: NICOTINE 21 MG/24 HOURS TOPICAL PATCH TD SCH (09:13)
[2019-11-02] MEDS: BACITRACIN 0.9 GM PACKET TP SCH (09:13)
[2019-11-02] MEDS: LIDOCAINE 5% TOPICAL PATCH TP SCH (09:13)
[2019-11-02] MEDS: THIAMINE HCL 100 MG TABLET (FP) PO SCH (21:07)
[2019-11-02] MEDS: traZODone HCL 100 MG TABLET (FP) PO SCH (21:07)
[2019-11-02] MEDS: MELATONIN 5 MG TABLETS PO SCH (21:08)
[2019-11-02] MEDS: LIDOCAINE PATCH REMOVAL MC SCH (21:08)
[2019-11-03] MEDS: PRENATAL VITAMINS W/ FOLIC ACID TABLET (FP) PO SCH (09:40)
[2019-11-03] MEDS: OLANZapine 10 MG TABLET PO SCH (09:40)
[2019-11-03] MEDS: NICOTINE 21 MG/24 HOURS TOPICAL PATCH TD SCH (09:40)
[2019-11-03] MEDS: BACITRACIN 0.9 GM PACKET TP SCH (09:41)
[2019-11-03] MEDS: LIDOCAINE 5% TOPICAL PATCH TP SCH (09:41)
[2019-11-03] MEDS: traZODone HCL 100 MG TABLET (FP) PO SCH (21:18)
[2019-11-03] MEDS: LIDOCAINE PATCH REMOVAL MC SCH (21:18)
[2019-11-03] MEDS: THIAMINE HCL 100 MG TABLET (FP) PO SCH (21:19)
[2019-11-03] MEDS: MELATONIN 5 MG TABLETS PO SCH (21:19)
[2019-11-04] MEDS: PRENATAL VITAMINS W/ FOLIC ACID TABLET (FP) PO SCH (09:57)
[2019-11-04] MEDS: NICOTINE 21 MG/24 HOURS TOPICAL PATCH TD SCH (09:57)
[2019-11-04] MEDS: BACITRACIN 0.9 GM PACKET TP SCH (09:57)
[2019-11-04] MEDS: OLANZapine 10 MG TABLET PO SCH (09:57)
[2019-11-04] MEDS: LIDOCAINE 5% TOPICAL PATCH TP SCH (09:58)
[2019-11-04] MEDS: LIDOCAINE PATCH REMOVAL MC SCH (21:11)
[2019-11-04] MEDS: traZODone HCL 100 MG TABLET (FP) PO SCH (21:11)
[2019-11-04] MEDS: THIAMINE HCL 100 MG TABLET (FP) PO SCH (21:11)
[2019-11-04] MEDS: MELATONIN 5 MG TABLETS PO SCH (21:12)
[2019-11-05] MEDS: OLANZapine 10 MG TABLET PO SCH (10:27)
[2019-11-05] MEDS: NICOTINE 21 MG/24 HOURS TOPICAL PATCH TD SCH (10:27)
[2019-11-05] MEDS: PRENATAL VITAMINS W/ FOLIC ACID TABLET (FP) PO SCH (10:27)
[2019-11-05] MEDS: LIDOCAINE 5% TOPICAL PATCH TP SCH (10:28)
[2019-11-05] MEDS: BACITRACIN 0.9 GM PACKET TP SCH (10:28)
--- NOTE | 2019-11-05 11:43 | PN ---
S Progress Note (SOAP) Subjective: Four Kacy put in on 10/28/19 at [facility] ED due to be removed today. Objective: 11/05/19 11:43 Vital Signs - 24 hr 11/04/19 11/04/19 11/05/19 12:22 20:01 06:52 O2 Sat by Pulse 95 95 95 Oximetry (%) Vital Signs (72 hours) 11/02/19 11/03/19 11/03/19 21:08 07:08 20:06 Temperature 97.8 F Pulse Rate 100 H Respiratory 18 Rate Blood Pressure 98/72 O2 Sat by Pulse 96 95 96 Oximetry (%) 11/04/19 11/04/19 11/05/19 12:22 20:01 06:52 Temperature Pulse Rate Respiratory Rate Blood Pressure O2 Sat by Pulse 95 95 95 Oximetry (%) Alert o x 3,coherent nad,no resp difficulty oob ambulating with steady gait Head:Normocephalic, 4 kacy on occipital area removed. Area clean with no redness,swelling or drainage. wound edges approximated. Assessment: 11/05/19 11:43 s/p head laceration Plan: cleaned area with povidine-iodine solution 4 kacy removed and pt tolerated well Bacitracin ointment applied to area. cont bacitracin ointment bid.
--- NOTE | 2019-11-05 11:53 | PN ---
S Progress Note Note: Patient is scheduled for discharge tomorrow. Scripts for 30 days supply of medications(Trazadone 100 mg/hs, Zyprexa 10 mg/day)will be electronically transmitted to [facility], [address], [place], [place] [address]
[2019-11-05] MEDS: traZODone HCL 100 MG TABLET (FP) PO SCH (21:11)
[2019-11-05] MEDS: THIAMINE HCL 100 MG TABLET (FP) PO SCH (21:11)
[2019-11-05] MEDS: MELATONIN 5 MG TABLETS PO SCH (21:12)
[2019-11-05] MEDS: LIDOCAINE PATCH REMOVAL MC SCH (21:12)
[2019-11-05] MEDS ORDERED: BACITRACIN 0.9 GM PACKET TP SCH (22:00)
[2019-11-06 06:47] VITALS: BP 91/64; PULSE 109; TEMP 98.4
--- NOTE | 2019-11-06 08:50 | DS ---
[facility] Rehab Discharge Summary - [facility] Rehab Discharge Summary Admission Date: 10/23/19 Discharge Date: 11/06/19 - History Present History: Alcohol dependence, Cannabis dependence Pertinent Past History: Falls S/P Laceration of Head/with kacy Bipolar disorder - Discharge Physical Exam Vital Signs: Vital Signs Temperature 98.4 F 11/06/19 06:25 Pulse Rate 109 H 11/06/19 06:25 Respiratory Rate 18 11/06/19 06:25 Blood Pressure 91/64 11/06/19 06:25 O2 Sat by Pulse Oximetry (%) 97 11/06/19 06:25 General;WDWN male, alert o x 3 Head:Normocephalic, occipital area laceration closed and healing well, no redness or swelling(kacy removed 11/05/19). cardiac:s1 s2, rrr lungs:ctab abdomen;soft,+bs, nt,nd MSK/Skin;oob ambulating with steady gait/cane;active FROM, all limbs, no edema. Pertinent Admission Physical Exam Findings: s/p detox laceration with 4 kacy to occipital region on admission. - Treatment Discharge Condition: Discharge condition good, Rehabilitated safely, Responded well, Outpatient referral accepted Hospital Course: pt is a 58 y/o male who completed detox and referred to rehab for aftercare. Pt completed rehab and discharged today. Pt was seen by his counselor and referred to CD after care to follow up. Pt has accepted CD aftercare to the [facility], [place], [place]. - Medication Discharge Medications: Ambulatory Orders Olanzapine [ZyPREXA -] 10 mg PO BID #0 tablet 05/30/11 Olanzapine [ZyPREXA -] 10 mg PO DAILY #30 mg 11/05/19 traZODone HCL [Desyrel -] 100 mg PO HS #30 mg 11/05/19 - Medication-Assisted Treatment (MAT) Medication-Assisted Treatment (MAT): No - Discharge Instructions Diet, activity, other medical instructions: Diet:Regular Activity: oob ad hakeem Other medical instructions:follow up with CD aftercare as recommended and PCP at the [facility] as needed. - Diagnosis (1) Alcohol dependence Status: Chronic Qualifiers: Substance use status: uncomplicated Qualified Code(s): F10.20 - Alcohol dependence, uncomplicated (2) Cannabis dependence Status: Chronic (3) Laceration of head Status: Acute Qualifiers: Encounter type: subsequent encounter Location of open wound of head: scalp Foreign body presence: without foreign body Qualified Code(s): S01.01XD - Laceration without foreign body of scalp, subsequent encounter (4) Nicotine dependence Status: Chronic Qualifiers: Nicotine product type: cigarettes Substance use status: uncomplicated Qualified Code(s): F17.210 - Nicotine dependence, cigarettes, uncomplicated (5) Arthritis of both knees Status: Chronic (6) Cocaine dependence Status: Chronic (7) Use of cane as ambulatory aid Status: Chronic - Follow-up Referral Minutes to complete discharge: 30 - AMA Did Patient Leave Against Medical Advice: No
== END 2019-11-06 09:56 | disposition home or self-care (01) | DRG 895 ==
LOC: YASAS 13:11 → Y5N 13:12
PROVIDERS: ADMIT Allergy & Immunology; ATTEND Allergy & Immunology
PROC: HZ42ZZZ Group Counseling for Substance Abuse Treatment, Cognitive-Behavioral (ICD-10-PCS; principal; 2019-10-23)
DX: F10.20 Alcohol dependence, uncomplicated (principal); F14.20 Cocaine dependence, uncomplicated; F19.282 Other psychoactive substance dependence with psychoactive substance-induced sleep disorder; F12.20 Cannabis dependence, uncomplicated; F17.210 Nicotine dependence, cigarettes, uncomplicated; F31.9 Bipolar disorder, unspecified; M17.0 Bilateral primary osteoarthritis of knee; S01.01XA Laceration without foreign body of scalp, initial encounter; W18.39XA Other fall on same level, initial encounter; Y93.89 Activity, other specified; Y92.230 Patient room in hospital as the place of occurrence of the external cause; Y99.8 Other external cause status; Z99.89 Dependence on other enabling machines and devices

== ENCOUNTER 2019-10-27 04:44 | Emergency (ER) | payer OTHER ==
[2019-10-27 04:56] VITALS: BMI 27.1
--- NOTE | 2019-10-27 05:11 | PDOC ---
Attending Attestation - Resident Resident Name: Rachel Awad - ED Attending Attestation I have performed the following: I have examined & evaluated the patient, The case was reviewed & discussed with the resident, I agree w/resident's findings & plan - HPI HPI: 10/27/19 06:53 Pt fell out of bed and struck head, lacerating it on the wall. Pt has no LOC - Physicial Exam PE: 10/27/19 06:59 Agree with resident exam Normal HEENT; scalp laceration 2" long Pt has a normal neuro exam - Medical Decision Making 10/27/19 06:35 Patient Name: TERESA FONTANA THIS IS A PRELIMINARY REPORT DATE OF SERVICE: 2019-10-27 05:28:08 IMAGES: 9 EXAM: HEAD CT WITHOUT CONTRAST HISTORY: Patient fell. 58-year-old male. COMPARISON: None. FINDINGS: CSF spaces are within normal limits. Periventricular white matter is of normal attenuation. No intracranial mass or mass affect. No evidence of an acute intracranial bleed. Basal ganglia, brain stem and cerebellum are normal in appearance. Physiologic calcifications are noted. Bone windows show the mastoid and paranasal sinuses to be well aerated. The orbits demonstrate a small metallic density adjacent to the left lateral margin of left optic globe. Calcification is also seen at the margins of the sclera of the left optic globe. No bone lesions or fractures identified. IMPRESSION: Small metallic density adjacent to the left optic globe. THIS PATIENT CANNOT HAVE AN MRI. Scleral calcifications also noted on the left. Otherwise, normal noncontrast head CT. No evidence of an acute intracranial bleed. 10/27/19 06:38 Patient Name: TERESA FONTANA THIS IS A PRELIMINARY REPORT DATE OF SERVICE: 2019-10-27 05:34:07 IMAGES: 627 EXAM: CERVICAL SPINE CT W/O CONTR HISTORY: Patient fell. 58-year-old male. COMPARISON: None. FINDINGS: Spinal fusion is seen at C5?6?7. Large posterior hypertrophic bone formation is seen along this fused segment causing severe spinal stenosis. Large anterior osteophytes with disc space narrowing is seen at C3-4 and C4-5 above the fusion. Disc space narrowing is also noted below the fusion C7-T1. The occiput, C1 and C2 relationship is normal. Neural outlet stenosis dominates on the left at C5-6 to 7. Facet degenerative joint disease is evident below the fusion C7-T1. No acute fracture, dislocation or jumped facet. The precervical soft tissues are normal in appearance without airway compromise. Of note, there is right vocal cord paralysis versus a right laryngeal mass. No cervical adenopathy. Thyromegaly. The lung apices are clear. 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 IMPRESSION: Spinal fusion with severe spinal stenosis at C5-6-7. No acute fracture, dislocation or jumped facet. No evidence of cervical spine instability. No evidence of airway compromise. 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 Further workup recommended on an outpatient basis. 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 Further workup recommended on an outpatient basis. Thyromegaly. Further workup recommended on an outpatient basis. 10/27/19 07:00 Pt is stable to return to [facility] Discharge - Discharge Information Problems reviewed: Yes Clinical Impression/Diagnosis: Fall Qualifiers: Encounter type: initial encounter Qualified Code(s): W19.XXXA - Unspecified fall, initial encounter Laceration of head Qualifiers: Encounter type: initial encounter Location of open wound of head: scalp Foreign body presence: without foreign body Qualified Code(s): S01.01XA - Laceration without foreign body of scalp, initial encounter Condition: Stable Disposition: HOME - Follow up/Referral Referrals: ON STAFF,NOT [Primary Care Provider] - - Patient Discharge Instructions Patient Printed Discharge Instructions: DI for Laceration Repair -- Kacy Additional Instructions: You came into the ER following a fall with laceration to your head. In the ED, you were evaluated with head and neck CT. Your results did not indicate any acute brain bleeding or skull, neck injuries. Your CT indicates that you have a small metallic object in your right eye and you should not receive MRIs. You do not appear to be an acute need for immediate hospitalization. You are advised to return to the ED on 11/04/2019 for staple removal. Keep the wound dry for 24 hours and avoid lotions and soaps. Use bacitracin antibiotic ointment over the kacy. Return to the ED immediately if you have redness around the wound, drainage of pus, opening of the wound site, fever, or nausea. Thank you for coming to the [facility] ER. We hope you feel better soon! - Post Discharge Activity
--- NOTE | 2019-10-27 06:01 | PDOC ---
History of Present Illness - General Chief Complaint: Injury Stated Complaint: FALL Time Seen by Provider: 10/27/19 04:46 - History of Present Illness Initial Comments: Pt is a 58y M with no significant PMH presents with head laceration following fall. Pt states that he attempted to sit backwards in bed in the dark around 3am and fell to the ground and injured his head against the bed. Denies any LOC, syncope, lightheadedness, dizziness. States that he is at [facility] for alcohol rehab. Pt states that he received his tetanus booster last year. Denies any f/c, headache, neck pain, chest pain, SOB. PMH: denies PSH: denies Meds: denies Allergies: NKDA Social: reports 1PPD, unspecific ETOH use, marijuana use Review of Systems CONSTITUTIONAL:denies fever, chills, diaphoresis, generalized weakness, malaise HEENT:denies rhinorrhea, nasal congestion, sore throat, ear pain, eye pain, visual changes CARDIOVASCULAR:denies chest pain, syncope, palpitations, irregular heart rate, lightheadedness RESPIRATORY:denies cough, shortness of breath, wheezing GASTROINTESTINAL: denies abdominal pain, nausea, vomiting, diarrhea, constipation GENITOURINARY:denies dysuria, frequency, flank pain MUSCULOSKELETAL:denies myalgia, arthralgia, neck pain, back pain HEMATOLOGIC/IMMUNOLOGIC:denies easy bleeding, easy bruising ENDOCRINE: denies unexplained weight gain, unexplained weight loss NEUROLOGIC:denies headache, loss of consciousness, focal weakness or paresthesias, dizziness, unsteady gait, seizure, mental status changes, bladder or bowel incontinence SKIN:denies rash, itching, pallor Physical Exam General: awake, alert, fully oriented, in no acute distress, well developed, well nourished Head: normocephalic, 4cm laceration to left posterior head Eyes: PERRL, EOMI, anicteric sclera, conjunctiva clear ENT: Auricles normal inspection, hearing grossly normal, oropharynx clear without exudates. Moist mucous membranes Neck: supple, normal ROM Lung: equal breath sounds b/l, CTA b/l, no crackles, wheezes; no distress, speaks full sentences Heart: RRR, normal S1, S2, no murmurs appreciated Abdomen: soft, non tender, normoactive bowel sounds, no guarding, rebound, m asses Extremities: normal ROM, no edema, no erythema or tenderness, DP/PT pulses 2+ and symmetric Neuro: CN2-12 grossly intact, moves all extremities, normal speech, sensation intact Skin: warm, dry MDM Pt is a 58y M with no significant PMH presents with head laceration following fall. DDx including but not limited to: mechanical fall, head laceration, ICH Workup: head CT, cervical spine CT Head CT: Small metallic density adjacent to the left optic globe. THIS PATIENT CANNOT HAVE AN MRI. Scleral calcifications also noted on the left. Otherwise, normal noncontrast head CT. No evidence of an acute intracranial bleed. Cervical spine: Spinal fusion with severe spinal stenosis at C5-6-7. No acute fracture, dislocation or jumped facet. No evidence of cervical spine i nstability. No evidence of airway compromise. 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 Thyromegaly. - Patient well appearing, denies complaints of pain - Asymptomatic at present time and asymptomatic entirety of ED stay - laceration closed with 4 kacy, pt tolerated procedure well. Hemostasis achieved. - regarding metallic density: patient denies trauma to eye, states that he had cataract surgery 10 years ago. EOMI intact, denies recent changes in vision Re-assessment: Patient stable for discharge. Informed of all lab and imaging results. Given follow up instructions and strict return precautions. Patient expressed understanding and agree to plan Disposition Discharge to home Past History - Medical History Allergies/Adverse Reactions: Allergies Allergy/AdvReac Type Severity Reaction Status Date / Time No Known Allergies Allergy Verified 10/27/19 04:46 Home Medications: Ambulatory Orders Olanzapine [ZyPREXA -] 10 mg PO BID #0 tablet 05/30/11 traZODone HCL [Desyrel -] 100 mg PO HS 08/07/12 Anemia: No Asthma: No Cancer: No Cardiac Disorders: No CVA: No COPD: No CHF: No Dementia: No Diabetes: No GI Disorders: No Disorders: No HTN: No Hypercholesterolemia: No Kidney Stones: No Liver Disease: No Seizures: No Thyroid Disease: No - Surgical History Abdominal Surgery: No Appendectomy: No Cardiac Surgery: No Cholecystectomy: No Lung Surgery: No Neurologic Surgery: No Orthopedic Surgery: Yes (Left elbow sx for fx in 2002) - Reproductive History Testicular Surgery: No - Psycho-Social/Smoking History Smoking History: Unknown if ever smoked Have you smoked in the past 12 months: No Number of Cigarettes Smoked Daily: 20 Cigars Per Day: 0 Information on smoking cessation initiated: No 'Breaking Loose' booklet given: 10/18/19 - Substance Abuse Hx (Audit-C & DAST Scrn) How often the patient has a drink containing alcohol: Monthly or less Number of drinks the patient has on a typical day: 1 or 2 Score: In Men: 4 or > Positive; In Women: 3 or > Positive: 1 Screen Result (Pos requires Nsg. Audit-10AR): Negative In the last yr the pt used illegal drug/Rx for NonMed reason: Yes Score: Yes response is considered Positive: 1 Screen Result (Positive result requires Nsg. DAST-10): Positive *Physical Exam - Vital Signs Last Vital Signs Temp Pulse Resp BP Pulse Ox 98.6 F 84 20 136/82 99 10/27/19 04:47 10/27/19 04:47 10/27/19 04:47 10/27/19 04:47 10/27/19 04:47 Procedures - Laceration/Wound Repair Left Posterior Head Wound Length: 2.6 to 5.0 cm Wound Explored: clean, no foreign body present Wound's Depth, Shape: linear Irrigated w/ Saline: Yes Wound Repaired With: [place] (4) Sterile Dressing Applied: Yes Progress: Pt tolerated procedure well. Hemostasis achieved. Discharge - Discharge Information Problems reviewed: Yes Clinical Impression/Diagnosis: Fall Qualifiers: Encounter type: initial encounter Qualified Code(s): W19.XXXA - Unspecified fall, initial encounter Laceration of head Qualifiers: Encounter type: initial encounter Location of open wound of head: scalp Foreign body presence: without foreign body Qualified Code(s): S01.01XA - Laceration without foreign body of scalp, initial encounter Condition: Stable Disposition: HOME - Admission No - Follow up/Referral Referrals: ON STAFF,NOT [Primary Care Provider] - - Patient Discharge Instructions Patient Printed Discharge Instructions: DI for Laceration Repair -- Kacy Additional Instructions: You came into the ER following a fall with laceration to your head. In the ED, you were evaluated with head and neck CT. Your results did not indicate any acute brain bleeding or skull, neck injuries. Your CT indicates that you have a small metallic object in your right eye and you should not receive MRIs. You do not appear to be an acute need for immediate hospitalization. You are advised to return to the ED on 11/04/2019 for staple removal. Keep the wound dry for 24 hours and avoid lotions and soaps. Use bacitracin antibiotic ointment over the kacy. Return to the ED immediately if you have redness around the wound, drainage of pus, opening of the wound site, fever, or nausea. Thank you for coming to the [facility] ER. We hope you feel better soon! - Post Discharge Activity
[2019-10-27] MEDS ORDERED: DIPHTH,PERTUSS(ACELL),TET 0.5 ML DISP.SYRIN IM ONE ×3 (06:04→06:23)
[2019-10-27 07:49] VITALS: BP 117/85; PULSE 75; TEMP 98.1
--- NOTE | 2019-10-29 14:21 | PN ---
S Progress Note Note: Pt is s/p fall with laceration to occipital head. Below is copy of discharge note from the [facility] ED: Discharge - Discharge Information Problems reviewed: Yes Clinical Impression/Diagnosis: Fall Qualifiers: Encounter type: initial encounter Qualified Code(s): W19.XXXA - Unspecified fall, initial encounter Laceration of head Qualifiers: Encounter type: initial encounter Location of open wound of head: scalp Foreign body presence: without foreign body Qualified Code(s): S01.01XA - Laceration without foreign body of scalp, initial encounter Condition: Stable Disposition: HOME - Admission No - Follow up/Referral Referrals: ON STAFF,NOT [Primary Care Provider] - - Patient Discharge Instructions Patient Printed Discharge Instructions: DI for Laceration Repair -- Kacy Additional Instructions: You came into the ER following a fall with laceration to your head. In the ED, you were evaluated with head and neck CT. Your results did not indicate any acute brain bleeding or skull, neck injuries. Your CT indicates that you have a small metallic object in your right eye and you should not receive MRIs. You do not appear to be an acute need for immediate hospitalization. You are advised to return to the ED on 11/04/2019 for staple removal. Keep the wound dry for 24 hours and avoid lotions and soaps. Use bacitracin antibiotic ointment over the kacy. Return to the ED immediately if you have redness around the wound, drainage of pus, opening of the wound site, fever, or nausea. Thank you for coming to the [facility] ER. We hope you feel better soon! Vital Signs (72 hours) 10/27/19 10/27/19 04:47 07:48 Temperature 98.6 F 98.1 F Pulse Rate 84 Pulse Rate [ 75 Left Radial] Respiratory 20 18 Rate Blood Pressure 136/82 Blood Pressure 117/85 [Left Arm] O2 Sat by Pulse 99 98 Oximetry (%)
== END 2019-10-27 07:45 | disposition home or self-care (01) ==
LOC: JER 04:44
PROC: 0HQ0XZZ Repair Scalp Skin, External Approach (ICD-10-PCS; principal; 2019-10-27)
DX: S01.01XA Laceration without foreign body of scalp, initial encounter (principal); W19.XXXA Unspecified fall, initial encounter
CPT/HCPCS: 12002-25; 70450-TC; 72125-TC; 99284-25